=== PATIENT | male | born 1955 | race Caucasian/White ===

== ENCOUNTER 2017-02-13 09:02 | Emergency (ER) | payer OTHER ==
[~2017-02-13] VITALS: Ht 185.4 cm; Wt 97.3 kg
[~2017-02-13 09:02] MED LIST: ASPI81TA16 PO; CHOL400T41 PO; FISH1CAP15 PO; FLUN25SP NS; GABA300C PO; GLU500 PO; INSU100C2 SQ; INSU100V5 SQ; LOVA20TA7 PO; MAGN400C PO; MULT-1007 PO; POTA2TAB2 PO; PROT40T PO; UBID200C17 PO
[2017-02-13 09:09] VITALS: BP 129/87; PULSE 83; RESP 16; O2SAT 97
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
[2017-02-13] MEDS ORDERED: PRAM1TAB3 PO (09:43)
[2017-02-13] MEDS ORDERED: GABA-502 PO (09:43)
[2017-02-13] MEDS ORDERED: ASPI-973 PO (09:45)
[2017-02-13] MEDS ORDERED: PANT40TA2 PO (09:45)
[2017-02-13] MEDS ORDERED: METF500T4 PO (09:45)
[2017-02-13] MEDS ORDERED: INSLIS SUBQ (09:45)
[2017-02-13] MEDS ORDERED: INSU100V7 SUBQ (09:45)
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
[2017-02-13 11:25] VITALS: BP_SYST 128; BP_SYST 129; BP_DIAS 82; BP_DIAS 87; PULSE 80; PULSE 83; RESP 15; RESP 16; O2SAT 97; O2SAT 98
== END 2017-02-13 11:26 | disposition home or self-care (01) ==
LOC: SED 09:02
DX: S29.019A Strain of muscle and tendon of unspecified wall of thorax, initial encounter (principal); S06.0X0A Concussion without loss of consciousness, initial encounter; V49.40XA Driver injured in collision with unspecified motor vehicles in traffic accident, initial encounter; Y92.410 Unspecified street and highway as the place of occurrence of the external cause; Y93.89 Activity, other specified; Y99.8 Other external cause status; R10.9 Unspecified abdominal pain; E11.9 Type 2 diabetes mellitus without complications; Z79.82 Long term (current) use of aspirin; Z79.4 Long term (current) use of insulin; Z79.84 Long term (current) use of oral hypoglycemic drugs